=== PATIENT | male | born 1980 | race Caucasian/White ===

== ENCOUNTER 2021-12-26 19:48 | Observation (INO) | payer BC, MEDICARE, MEDICAID, OTHER, SELFPAY ==
--- NOTE | ~2021-12-26 | CT_ITS ---
EXAMINATION: CT abdomen pelvis w con DATE: 12/26/2021 22:13 INDICATION: Vomiting Coffee Ground material TECHNIQUE: Computed tomography (CT) of the abdomen and pelvis was performed with 100 mL Omnipaque-350 intravenous contrast. Automated exposure control and iterative reconstruction technique were employe d. The dose-length product was 206.70 mGy-cm. COMPARISON: 09/25/2018 FINDINGS: Limitations: Motion artifact, beam hardening from spinal hardware, and positioning. Lower thorax: Subsegmental bibasilar opacities, may reflect atelectasis, chronic change, or foci of a spiration. Hiatal hernia. Pulmonary artery stent. Liver: Normal. Biliary/Gallbladder: Gallbladder is normal. No bile duct dilation. Spleen: Normal. Pancreas: No mass or duct dilation. Adrenals:No mass. Kidneys: No hydronephrosis. Right renal calculi. Left renal cyst. Bilateral hypodensities that are to o small to characterize. GI tract: No small or large bowel dilation. Appendix not visualized. Fluid-filled colon. Mesentery/Peritoneum: No ascites, mass, or free air. Retroperitoneum: No mass. Pelvis: Stable soft tissue density in the left inguinal canal, likely undescended testicle. Otherwise the pelvic organs are within normal limits. Bones/Soft Tissues: Soft tissues and body wall unremarkable. Severe thoracal lumbar scoliosis. Extens jina thoracolumbar fusion. Additional Findings: None. IMPRESSION: Limited examination. Fluid-filled colon as can be seen with diarrheal illness. No other acute abdomin opelvic process detected. Reviewed, dictated and finalized at location K. IMPRESSION: Limited examination. Fluid-filled colon as can be seen with diarrheal illness. No other acute abdominopelvic process detected.
[2021-12-26 19:55] VITALS: BP 111/73; PULSE 64; RESP 18; TEMP 36.8; O2SAT 90
--- NOTE | 2021-12-26 20:47 | ED.NAVMDI ---
HPI - Nausea/Vomiting/Diarrhea General Chief complaint: Nausea/Vomiting/Diarrhea Stated complaint: vomiting Time Seen by Provider: 12/26/21 20:36 Source: family Mode of arrival: wheelchair Limitations: clinical condition History of Present Illness HPI Narrative: 41-year-old male with cerebral palsy brought in by the father. He is in the process of undergoing a prep for a colonoscopy. He initially had magnesium citrate yesterday and then started with MiraLAX. Been having vomiting ever since. Father actually brought in a container of the vomitus which is very dark in appearance and liquid and has coffee-ground type material in it. No history of any GI bleeding before. They attempted to do a GI prep for him to get a colonoscopy a month ago could not tolerate that and began vomiting subsequently was rescheduled for tomorrow. No blood in his vomitus or stool. He is getting work-up done because he has had this abdominal pain with no etiology and able to determine at this point. Patient has a prosthetic heart valve but is not on any blood thinners. Related Data Home Medications Medication Instructions Recorded Confirmed polyethylene glycol 3350 17 17 gm PO DAILY 06/07/20 12/14/21 gram/dose oral powder aspirin 81 mg tablet,delayed 50 mg PO DAILY tablet 02/26/21 12/14/21 release Allergies Allergy/AdvReac Type Severity Reaction Status Date / Time latex Allergy Unknown Unknown Verified 12/14/21 12:44 Review of Systems Review of Systems: CONSTITUTIONAL: Denies fever, chills, or sweats. EYES: Denies redness, or discharge. ENT: Denies rhinorrhea, congestion, sore throat, or otalgia. CARDIOVASCULAR: Denies chest pain, palpitations, or edema. Has a prosthetic valve RESPIRATORY: Denies cough or dyspnea. GASTROINTESTINAL: Some chronic abdominal pain now is coming in with vomiting of coffee-ground material. No diarrhea GENITOURINARY: Denies dysuria or hematuria. SKIN: Denies rash or itching. MUSCULOSKELETAL: Denies back pain, joint pain, or myalgia. NEUROLOGIC: Denies recent changes PSYCHIATRIC: Denies anxiety or depression. [facility] Past Medical History Medical History Abdominal pain Allergies Body mass index (BMI) less than 16.5 Cerebral palsy Encounter for prostate cancer screening Heart disease Hemorrhoid Iron deficiency anemia, unspecified Irritable bowel syndrome with constipation Lower abdominal pain Migraine without aura and without status migrainosus, not intractable Polycythemia (05/28/21) hematocrit slightly elevated at 52 on 05/28/2021 Pulmonary atresia, VSD (including ToF, VSD) Scoliosis Surgical History Surgical History H/O Spinal surgery (~1997) Pulmonary valve replaced Family History Family History Grandparent Family history of thyroid disease Mother Family history of thyroid disease Diabetes mellitus Hypertension Father Diabetes mellitus Social History Social History Smoking status: Never smoker Alcohol intake: never Substance use: never Substance use type: does not use Spiritual care concerns: No Exam Narrative: APPEARANCE: Well appearing, no pain or distress, well-nourished. Head normocephalic and atraumatic. EYES: PERRLA/EOMI, conjunctivae very clear. NOSE: Normal with no drainage EARS:TMS clear [place], with good light reflex. THROAT: Pharynx clear, no exudate. NECK: Supple. No adenopathy, no masses. RESPIRATORY: Airway patent, respirations nonlabored. Clear to auscultation bilaterally, no rales, rhonchi, wheezing. CARDIOVASCULAR: Regular rate and rhythm without murmurs, rubs, or gallops. Tachycardic. Click noted from the valve. ABDOMINAL: Soft, nontender no hepatosplenomegaly. Abdomen appears to be distended with some hyperactive b
[2021-12-26 21:30] VITALS: BP 112/82; PULSE 116; RESP 20; O2SAT 96
[2021-12-26 21:30] LABS: Basophils Percent Auto 0.2 % (0.2-1.2); Hemoglobin 16.4 g/dL (14.0-18.0); Immature Granulocyte Absolute 0.04 K/mm3 (0.00-0.031); Immature Granulocyte Percent A 0.3 % (0-0.5); Immature Platelet Fraction Pct 18.4 % (0.9-11.2); Lymphocytes Absolute Auto 0.73 K/mm3 (0.9-3.2); Lymphocytes Percent Auto 5.8 % (18.3-44.2); Mean Corpuscular HGB Conc 32.8 g/dl (32-36); Mean Corpuscular Hemoglobin 30.3 pg (26-34); Mean Corpuscular Volume 92.3 fl (80-100); Mean Platelet Volume 13.2 fl (7.4-10.4); Monocytes Absolute Auto 0.6 K/mm3 (0.1-0.6); Monocytes Percent Auto 4.5 % (2.6-8.5); Neutrophils Absolute Auto 11.3 K/mm3 (1.3-6.7); Neutrophils Percent Auto 89.2 % (45.5-73.1); Platelet Count Result 210 k/mm3 (150-375); Red Blood Count 5.42 M/mm3 (4.6-6.20); White Blood Count 12.6 K/mm3 (4.5-10.0)
[2021-12-26 21:39] LABS: INR 1.1; Prothrombin Time 14.2 Seconds (11.1-14.7)
[2021-12-26 21:40] LABS: Partial Thromboplastin Time 30.6 SECONDS (22.3-36.8)
[2021-12-26 21:43] LABS: Alanine Aminotransferase 17 U/L (4-50); Alkaline Phosphatase 69 U/L (38-126); Anion Gap 10 mmol/L (8-16); Aspartate Amino Transferase 38 U/L (17-59); Bilirubin,Total 1.1 mg/dL (0.2-1.3); Blood Urea Nitrogen 20 mg/dL (9-20); Calcium 8.7 mg/dL (8.4-10.2); Carbon Dioxide 29 mmol/L (22-30); Chloride 99 mmol/L (98-107); Estimated CRCL calculation 91 ml/min; Estimated Glomerular Filt Rate > 60; Glucose 152 mg/dL (65-110); Lipase 47 U/L (23-300); Potassium 4.5 mmol/L (3.4-5.0); Sodium 138 mmol/L (137-145)
[2021-12-26 22:30] VITALS: BP 117/76; PULSE 110; RESP 20; O2SAT 95
[2021-12-26] MEDS: ONDANSETRON INJ 4 MG/2 ML VIAL IV PUSH (22:54)
--- NOTE | 2021-12-26 23:29 | PM.IMHP ---
H&P: HPI History of Present Illness Date/Time: 12/26/21 23:29 Chief Complaint: Nausea and vomiting Narrative: This is a 41-year-old male with past medical history significant for cerebral palsy, congenital heart malformation, heart disease, patient with repaired tetralogy of Fallot. Patient is brought into the emergency room by his father for evaluation after having several episodes of nausea and vomiting was doing preparation for colonoscopy with MAC citrate. It was noted that patient was having coffee-ground emesis which was Guiac positive. Most of the history has been obtained from the father as patient is unable to give any. Decision has been made to admit the patient for the evaluation, management and treatment. Review of Systems Review of Systems: ROS unobtainable: Yes unobtainable due to medical condition (Cerebral palsy) [facility] Past Medical History Medical History Abdominal pain Allergies Body mass index (BMI) less than 16.5 Cerebral palsy Encounter for prostate cancer screening Heart disease Hemorrhoid Iron deficiency anemia, unspecified Irritable bowel syndrome with constipation Lower abdominal pain Migraine without aura and without status migrainosus, not intractable Polycythemia (05/28/21) hematocrit slightly elevated at 52 on 05/28/2021 Pulmonary atresia, VSD (including ToF, VSD) Scoliosis Surgical History Surgical History H/O Spinal surgery (~1997) Pulmonary valve replaced Family History Family History (Updated 12/27/21 @ 01:19 by Ary Mercado RN) Grandparent No problems noted. Mother Diabetes mellitus Family history of thyroid disease Hypertension Father Diabetes mellitus Social History Social History Smoking status: Never smoker Alcohol intake: never Substance use: never Substance use type: does not use Living arrangements: with family Spiritual care concerns: No Meds Home Medications and Allergies Home Medications Medication Instructions Recorded Confirmed Type metoprolol succinate 50 mg 25 mg PO DAILY #30 tablet 06/07/20 12/27/21 Rx tablet,extended release 24 hr polyethylene glycol 3350 17 17 gm PO DAILY 06/07/20 12/27/21 History gram/dose oral powder sumatriptan 20 mg/actuation nasal 20 mg NASAL ONCE PRN #6 each 06/07/20 12/27/21 Rx spray aspirin 81 mg tablet,delayed 50 mg PO DAILY tablet 02/26/21 12/27/21 History release hydrocortisone 2.5 % topical cream 1 applic RECTAL BID PRN #30 g 06/26/21 12/27/21 Rx with perineal applicator Allergies Allergy/AdvReac Type Severity Reaction Status Date / Time latex Allergy Unknown Unknown Verified 12/14/21 12:44 Vital Signs Vital Signs - 24 hr 12/26/21 19:55 Temperature 98.2 F Pulse Rate 64 Respiratory Rate 18 Blood Pressure 111/73 Pulse Oximetry 90 Exam Narrative: Laying in a stretcher Const: General: comfortable, no acute distress, alert and awake Nutritional Appearance: underweight Orientation/consciousness: Other orientation findings (Cognitively impaired) HENMT: Head: normal to inspection, normocephalic and atraumatic Ears: hearing grossly normal bilaterally Face and sinus: normal facial exam Mouth: Yes Normal oral and palatal mucosa present Eyes: General: appearance normal, both eyes and all related structures Alignment and Position: alignment normal Sclera: sclerae normal Pupils: Equal, round and reactive pupils present EOM: EOMs intact bilaterally Neck: Neck: full ROM, no lymphadenopathy and no JVD Thyroid: thyroid normal Lymphatic: no lymphadenopathy noted Chest: Chest palpation & inspection: other (Mid sternotomy surgical scar) Resp: Effort & Inspection: normal respiratory effort, able to speak in complete sentences and no cough Auscultation: clear to auscultation bilaterall
[2021-12-26 23:30] VITALS: BP 115/79; PULSE 110; RESP 16; O2SAT 95
[2021-12-27] VITALS (8 sets, daily range): BP systolic 72–149; BP diastolic 42–80; PULSE 65–115; RESP 15–18; TEMP 36.2–37.3; O2SAT 92–100; BMI 13.7
[2021-12-27] MEDS: PANTOPRAZOLE SODIUM IV 40 MG VIAL IV PUSH (00:38)
--- NOTE | 2021-12-27 01:20 | ADMGEN ---
This patient, Nash Page, was admitted to Medical Room 343-01. Patient/family oriented to hospital policies and general routines including ID bracelet, bed and alarms, visiting hours, pain management, procedures, bathroom and other care routines, personal items, smoking policy, room service/diet, and visiting hours. Information on how to activate the Rapid Response Team has been discussed. Patient/Family are encouraged to report perceived risks to care and to ask questions if they do not understand what they are told or what they should do.
[2021-12-27] MEDS: LACTATED RINGERS 1,000 ML 150 ML IV CONT (08:14)
[2021-12-27] MEDS: GENTAMICIN 80MG/SOD CHL 50 ML 80 MG/50 ML BAG 100 MG IVPB (08:15)
--- NOTE | 2021-12-27 08:19 | WPDANESEPPF ---
Anes - Initial Pre Proc Eval Procedure: Operation Date: 12/27/21 13:15 Proposed Procedures p Esophagogastroduodenoscopy & Colonoscopy - Gabriele Lorenzo MD Date/Time: 12/27/21 08:19 Surgeon: Kalyani De Leon PA-C Pre Op Diagnosis: Upper GI Bleed, Chronic Abd Pain, Cerebal Palsy Patient Data Age: 41 Gender: M Height: 1.7 m Weight: 39.8 kg Last Vital Signs Temp 37.3 C 12/27/21 08:17 Pulse 115 H 12/27/21 08:17 Resp 16 12/27/21 08:17 BP 143/67 H 12/27/21 08:17 Pulse Ox 95 12/27/21 08:17 Allergies Allergy/AdvReac Type Severity Reaction Status Date / Time latex Allergy Unknown Unknown Verified 12/27/21 08:16 Home Medications Medication Instructions Recorded Confirmed Type metoprolol succinate 50 mg 25 mg PO DAILY #30 tablet 06/07/20 12/27/21 Rx tablet,extended release 24 hr polyethylene glycol 3350 17 17 gm PO DAILY 06/07/20 12/27/21 History gram/dose oral powder sumatriptan 20 mg/actuation nasal 20 mg NASAL ONCE PRN #6 each 06/07/20 12/27/21 Rx spray aspirin 81 mg tablet,delayed 50 mg PO DAILY tablet 02/26/21 12/27/21 History release hydrocortisone 2.5 % topical cream 1 applic RECTAL BID PRN #30 g 06/26/21 12/27/21 Rx with perineal applicator Laboratory Tests 12/26/21 12/26/21 12/26/21 21:21 21:21 21:21 WBC 12.6 K/mm3 H K/mm3 (4.5-10.0) RBC 5.42 M/mm3 M/mm3 (4.6-6.20) Hgb 16.4 g/dL g/dL (14.0-18.0) Hct 50.0 % % (42.0-52.0) MCV 92.3 fl fl (80-100) MCH 30.3 pg pg (26-34) MCHC 32.8 g/dl g/dl (32-36) RDW 13.0 % % (11.5-14.5) Plt Count 210 k/mm3 k/mm3 (150-375) MPV 13.2 fl H fl (7.4-10.4) Immature Gran % (Auto) 0.3 % % (0-0.5) Neut % (Auto) 89.2 % H % (45.5-73.1) Lymph % (Auto) 5.8 % L % (18.3-44.2) [place] % (Auto) 4.5 % % (2.6-8.5) Eos % (Auto) 0.0 % % (0-4.4) Baso % (Auto) 0.2 % % (0.2-1.2) Lymph # (Auto) 0.73 K/mm3 L K/mm3 (0.9-3.2) [place] # (Auto) 0.6 K/mm3 K/mm3 (0.1-0.6) Eos # (Auto) 0.0 K/mm3 K/mm3 (0-0.3) Baso # (Auto) 0.0 K/mm3 K/mm3 (0.0-0.1) Abs Immat Gran (auto) 0.04 K/mm3 H K/mm3 (0.00-0.031) Absolute Neuts (auto) 11.3 K/mm3 H K/mm3 (1.3-6.7) Absolute Nucleated RBC 0.0 K/mm3 K/mm3 (0.0-0.012) Nucleated RBC % 0.0 % % (0.0-0.2) % Immature Plt Fraction 18.4 % H % (0.9-11.2) PT 14.2 Seconds Seconds (11.1-14.7) INR 1.1 APTT 30.6 SECONDS SECONDS (22.3-36.8) Sodium 138 mmol/L mmol/L (137-145) Potassium 4.5 mmol/L mmol/L (3.4-5.0) Chloride 99 mmol/L mmol/L (98-107) Carbon Dioxide 29 mmol/L mmol/L (22-30) Anion Gap 10 mmol/L mmol/L (8-16) BUN 20 mg/dL mg/dL (9-20) Creatinine 0.60 mg/dL L mg/dL (0.7-1.3) Estim Creat Clear Calc 91 ml/min ml/min Estimated GFR > 60 (59 - ) Glucose 152 mg/dL H mg/dL (65-110) Calcium 8.7 mg/dL mg/dL (8.4-10.2) Total Bilirubin 1.1 mg/dL mg/dL (0.2-1.3) AST 38 U/L U/L (17-59) ALT 17 U/L U/L (4-50) Alkaline Phosphatase 69 U/L U/L (38-126) Total Protein 9.0 g/dL H g/dL (6.3-8.2) Albumin 5.0 g/dL g/dL (3.5-5.1) Lipase 47 U/L U/L (23-300) Patient hx anesthesia problems: none Family hx anesthesia problems: none Results Review: All pre-operative results and documents have been reviewed as part of the pre-operative evaluation. [facility] Past Medical History Medical History Abdominal pain Allergies Body mass index (BMI) less than 16.5 Cerebral palsy Encounter for prostate cancer screening Heart disease Hemorrhoid Iron deficiency anemia, unspecified Ir
[2021-12-27] MEDS: AMPICILLIN 2 GM/NS 100 ML 2 GM/100 ML BAG IVPB (08:45)
--- NOTE | 2021-12-27 09:25 | SUR.OPER ---
EGD ENDED AT 916, COLONOSCOPY BEGAN AT 922.
[2021-12-27 13:11] LABS: Hematocrit 45.6 % (42.0-52.0); Hemoglobin 14.9 g/dL (14.0-18.0); White Blood Count 8.4 K/mm3 (4.5-10.0)
--- NOTE | 2021-12-27 13:46 | PM.DS ---
DS: Admitting Diagnosis Discharge Date 12/27/2021 Admitting Diagnosis Coffee-ground emesis DS: Discharge Diagnosis Discharge Diagnosis (1) Coffee ground emesis: Code(s): K92.0 - Hematemesis Status: Acute Assessment and Plan: Patient presented with coffee-ground emesis while taking prep for colonoscopy. EGD revealed hiatal hernia. Anti-reflux measures initiated. Continue Protonix 40 mg daily. [place] diet recommended. (2) Iron deficiency anemia, unspecified: Code(s): D50.9 - Iron deficiency anemia, unspecified Status: Acute Assessment and Plan: History of iron deficiency anemia per medical history in EMR. He had a low hemoglobin in May 2020 but subsequently has not been anemic. Hemoglobin and hematocrit remained within normal limits even in light of coffee-ground emesis. (3) Abdominal pain: Code(s): R10.9 - Unspecified abdominal pain Status: Acute Assessment and Plan: This had been a persistent issue for which she is established with Gastroenterology and had scheduled colonoscopy. Colonoscopy showed multiple internal hemorrhoids that were not actively bleeding. Suspect his abdominal pain is related to poor motility. Bowel regimen was initiated. (4) Cerebral palsy: Code(s): G80.9 - Cerebral palsy, unspecified Status: Acute Assessment and Plan: No acute issues. (5) Body mass index (BMI) less than 16.5: Code(s): Z68.1 - Body mass index [BMI] 19.9 or less, adult Status: Acute Assessment and Plan: Follow up with PCP DS: Summary Hospital Course Hospital Course: Date of admission: 12/26/2021 Date of discharge: 12/27/2021 Nash Page is a 41-year-old male with a history of cerebral palsy who is wheelchair-bound, congenital heart disease including to Tetralogy of Fallot, iron deficiency anemia, migraine, and recent issues with abdominal discomfort and rectal pain ongoing for 6-12 months. Patient was scheduled to undergo colonoscopy on 12/27/[address] Lorenzo. He was completing his prep when he began having persistent nausea and vomiting and was noted to have an episode of coffee-ground emesis for which he was taken to the emergency department for further evaluation. On presentation, emesis was found to be Hemoccult positive, hemoglobin stable at 16.4, and CT abdomen/pelvis showed fluid-filled colon with no acute abdominal pelvic process. He was admitted to the hospitalist service for further evaluation management was seen in consultation by Gastroenterology. He underwent EGD and colonoscopy on 12/27/2021. Please see above for further information. The patient was feeling much improved and was eager for discharge home. He will follow-up with his PCP for further monitoring. He was initiated on a bowel regimen to help prevent constipation. Anti-reflux measures discussed in light of his hiatal hernia. The patient's mom and dad were present at the time of my evaluation I discussed with them worrisome signs and symptoms for which to return and educated on his medications. The patient was discharged in hemodynamically stable condition on 12/27/2021. Time Spent with Patient Time attestation: Total time spent providing and/or coordinating discharge services: 45 minutes Time spent: Greater than 30 minutes Exam Narrative: General: Thin, well-appearing 41 year-old male, sitting up in bed, comfortable, NARD Neuro: awake, alert, responds to some questions with yes, no, or good, speech is muffled but understandable, no focal neuro deficits noted HEENMT: normocephalic, atraumatic, EOMI, sclerae anicteric Respiratory: clear to auscultation bilaterally, nonlabored breathing Cardio: regular rate, regular rhythm with S1-S2 Abdomen: nondistended, normoactive bowel sounds, soft, nontender to palpation, no rigidity or guarding MSK: Atrophy of upper and lower extremities with bilateral upper extremity contractures Skin:
--- NOTE | 2021-12-27 14:10 | PCCCNOTE ---
On 12/27/21, the student, [Ines King], provided care and completed [facility] documentation on this patient. I have reviewed the student's documentation and agree with the findings.
== END 2021-12-27 14:40 | disposition home or self-care (01) ==
LOC: ANHED 21:37 → ANH3MED 12-27 00:10
PROVIDERS: Internal Medicine Gastroenterology; Physician Assistant; Admitting Provider Internal Medicine; Emergency Provider Emergency Medicine; PCP Family Medicine; Visit Provider Family Medicine
PROC: 0DJ08ZZ Inspection of Upper Intestinal Tract, Via Natural or Artificial Opening Endoscopic (ICD-10-PCS; CPT 43235; principal; 2021-12-27 13:15)
DX: K92.0 Hematemesis (principal); D50.9 Iron deficiency anemia, unspecified; K44.9 Diaphragmatic hernia without obstruction or gangrene; K58.1 Irritable bowel syndrome with constipation; K64.8 Other hemorrhoids; D75.1 Secondary polycythemia; G80.9 Cerebral palsy, unspecified; G43.909 Migraine, unspecified, not intractable, without status migrainosus; Q21.3 Tetralogy of Fallot; Z95.2 Presence of prosthetic heart valve
CPT/HCPCS: 43239; 45378; 36415; 74177; 80053; 83690; 85014; 85018; 85025; 85048; 85055; 85610; 85730; 86850; 86900; 86901; 87081; 96361; 96374; 96375; 99285; A9270; C9113; G0378; J0290; J1580; J2001; J2405; J2704; J7120; Q9967

== ENCOUNTER 2023-11-11 15:16 | Outpatient (CLI) | payer BC, MEDICARE, OTHER, MEDICAID, SELFPAY ==
--- NOTE | ~2023-11-11 | XR_ITS ---
EXAM: XR hip LT 2V w AP pelvis DATE: 11/11/2023 15:35 HISTORY: M25.552 - Pain in left hip . COMPARISON: CT abdomen pelvis 12/26/2021. FINDINGS: Decreased mineralization. Multiple air-filled loops of nondilated bowel over the lower abd omen. Pelvic phleboliths. Thoracolumbar fusion hardware. Bilateral coxa valga. No fracture or disloca tion. Mild left superior hip joint space narrowing and subchondral sclerosis. IMPRESSION: Osteopenia. Bilateral coxa valga. Mild left hip osteoarthritis. Reviewed, dictated and finalized at location K. ELET FORM COVERER
== END 2023-11-11 15:17 | disposition home or self-care (01) ==
LOC: ANHIMG 15:21
PROVIDERS: PCP Family Medicine; Visit Provider Family Medicine
DX: M85.852 Other specified disorders of bone density and structure, left thigh (principal); M16.12 Unilateral primary osteoarthritis, left hip
CPT/HCPCS: 73502

== ENCOUNTER 2025-03-01 13:44 | Outpatient (CLI) | payer BC, MEDICARE, OTHER, MEDICAID, SELFPAY ==
--- NOTE | ~2025-03-01 | US_ITS ---
Ultrasound of the left buttock CLINICAL HISTORY: Mass TECHNIQUE: Targeted sonographic imaging of the concern was performed. FINDINGS: Anterior clinical concern, there is a 1.8 x 0.8 x 1.6 cm hyperechoic, homogeneous, parallel mass, most compatible with lipoma. No other sonographic abnormality seen. IMPRESSION: 1.8 x 0.8 x 1.6 cm mass at the left buttock is most compatible with lipoma. Reviewed, dictated and finalized at location .
--- OUTSIDE RECORDS SUMMARY | 2025-03-01 14:30 | XMS_ITS | Continuity of Care Document ---
Author Name [facility] Organization [facility] Care Team Providers Care Pattern Changer And Repairer Name Role Phone [facility] Unavailable Unavailable Medications Combined list of outpatient medications from Department of Defense and Veterans Affairs facilities.Medications provided include 1) outpatient medications from the last 15 months, and 2) patient-reported medications. Medication Details Route Status Patient Instructions Prescription Expires Prescription Number Last Dispense Date Ordering Provider Order Date Order Qty Source metoprolol succ (U/D) 25 MG ORAL TB24 Be careful if taking OTCs.Zach e with food/mil k.Take or use exactly as directed .May impair driving. Swallow whole.Ma y cause drowsine ss/dizzi ness. Active 03/09/2025 [id number] 4 2023 45 [facility] [employer] [facility]i [facility] ([facility] [place] metoprolol succinate ER 25 mg/24 hour tablet See Instruct ions, # 45 EA, 3 total refill(s ), Hard Stop Complet ed 03/02/2024 4 2023 45.0 Ambulat ory Pharmac y metoprolol succinate ER 25 mg/24 hour tablet See Instruct ions, Oral, 0, # 45 EA, 3 total refill(s ), Hard Stop Oral (given by mouth) Ordered 03/09/2025 5 2024 45.0 Ambulat ory Pharmac y Allergies, Adverse Reactions, Alerts Combined list of allergies from Department of Defense and Veterans Affairs facilities. It does not include entries that were removed or entered in error. Substance Category Reaction Severity Reaction type Status Date Reported Comments Source No Known Allergies Drug allergy (disorder) active 11/29/2007 [place] [address] Immunizations Combined list of available immunizations from the Department of Defense and Veterans Affairs facilities. Immunization Series Date Given Administered By Site Reaction Lot Number CVX Code Drug Contact Center Associate Status Comments Source influenza virus vaccine, whole virus 2002 Harshal alexander Arm [id number] [employer] complet ed influenza virus vaccine, whole virus 08/02/03 Given Ambulat ory Pharmac y influenza virus vaccine, whole virus 2002 [id number] [employer] complet ed influenza virus vaccine, whole virus 08/02/03 Given Ambulat ory Pharmac y influenza virus vaccine, whole virus 1 2002 Unknown, Provider [id number] [employer] (PW[employer]) complet ed influenza virus vaccine, whole virus DoD influenza virus vaccine, whole virus 2000 zzLef t Arm [id number] 16 sanofi pasteur complet ed influenza virus vaccine, whole virus 07/24/01 Given Ambulat ory Pharmac y influenza virus vaccine, whole virus 2000 [id number] 16 sanofi pasteur complet ed influenza virus vaccine, whole virus 07/24/01 Given Ambulat ory Pharmac y influenza virus vaccine, whole virus 1 2000 Unknown, Provider [id number] 16 Sanofi Pasteur ([facility]) complet ed influenza virus vaccine, whole virus DoD [id number] YesPlz! complet ed influenza virus vaccine, whole virus 09/26/00 Given Ambulat ory Pharmac y influenza virus vaccine, whole virus 1 2000 Unknown, Provider [id number] 16 [facility] influenza virus vaccine, whole virus DoD Procedures Combined list of: 1) Procedures from Department of Veterans Affairs facilities going back up to thelast 18 months, not all [place] non-surgical procedures are included; 2) All procedures from the Department of Defense facilities. Procedure Procedure Type Code Date Perfomer Comments Sourc e No data available for this section Ambulatory P harmacy Social History Combined list of available smoking, tobacco, and other social history from Department of Defense and Veterans Affairs facilities. Social History Type Response Date Comment Sourc e This section is an empty social history section. DoD Assessment and Plan Combined list of future care activities from Department of Defense and Veterans Affairs facilities (e.g., assessment and plan notes, appointments, orders, and referrals). Additional future care activities may be listed in the Plan of Care section. Result Assessment and Plan Date Source Assessment and Plan No data available for this section 03/01/2025 Ambulatory Pharmacy Functional Status Combined list of recent functional and cognitive assessments recorded at [facility] Defense and [facility] ([place] Functional [place] Measurement (FIM) Scale: 1 = Total Assistance (Subject = 0% +), 2 = Maximal Assistance (Subject = 25% +), 3 = Moderate Assistance (Subject = 50% +), 4 = Minimal Assistance (Subject = 75% +), 5 = Supervision, 6 = Modified Henry (Device), 7 = Complete Henry (Timely, Safely). Assessment Date/Time Source Assessment Type Assessment Skill Assessment Score Assessment Details No data available for this section
== END 2025-03-01 13:45 | disposition home or self-care (01) ==
PROVIDERS: PCP Family Medicine; Visit Provider Nurse Practitioner Family
DX: R22.9 Localized swelling, mass and lump, unspecified (principal)
CPT/HCPCS: 76705

== ENCOUNTER 2025-03-11 00:25 | Day surgery (SDC) | payer BC, MEDICARE, OTHER, MEDICAID, SELFPAY ==
[2025-03-09 14:42] VITALS: BMI 15.2
--- NOTE | 2025-03-09 14:44 | PC.NURSE ---
Report to the Outpatient Waiting Room, entrance under the green pavilion located off [facility], at time _1200_ on date _[id number]_. Planned Procedure Time: _2pm_.? Time changes happen often and if your time is changed the preop area will call you the afternoon before. - You and your visitor will be asked to self-screen and do not enter if you have any COVID symptoms. Please call surgeon if you need to reschedule. - A mask is optional within the hospital at this time. Patients may have clear liquids (water, carbonated beverages, clear teas, apple juice) until 3 hours prior to surgery with a maximum of 20 ounces. - No food from midnight until time of surgery and no smoking, or chewing tobacco (or any form of nicotine). No chewing gum, candy or mints. Take only the following medications with a SIP of water on the morning of surgery: ___None___ DO NOT STOP ANY OF YOUR OTHER PRESCRIPTION MEDICATIONS PRIOR TO SURGERY EXCEPT THE FOLLOWING Hold all vitamins and supplements for 3 days per anesthesiologist. Medications to discontinue per physician Date to take last dose____ Please no make-up, nail marshallese, hairspray, perfume, deodorant, or body powder the day of surgery.? No jewelry (including any body piercings) or valuables the day of surgery, leave them at home.? Please take a shower or bath the night before, or the morning of, surgery with an antibacterial soap.? Wear comfortable, loose fitting clothing.? - Jewelry must be removed prior to entering the operating room.? Rings and piercings that are not removed may be cut off. - The hospital will not accept responsibility for valuables.? - Please leave all valuables, including medications, at home the day of surgery. If you are going home after surgery, a licensed cattle driver must drive you home.? - NO public transportation without another adult if you receive anesthesia. - We recommend that an adult stay with you for 24 hours following discharge. - We also recommend that you do not drive, make important decision, drink alcoholic beverages, or take any drugs that were not prescribed by your health care provider for at least 24 hours after your discharge time. Follow any additional instructions given to you from your surgeon. Telephone instructions given to __Lenny/belia__and asked if any additional questions and then verbalized understanding. Patient advised to call surgeon office or pre surgery nurse liaison [phone] if any additional questions.
[2025-03-11 12:45] VITALS: BMI 15.1
--- NOTE | 2025-03-11 12:47 | ECG_ITS ---
Test Date: 2025-03-11 13:25:32 Measurements Intervals Jakin Rate: 94 P: 34 PA: 191 QRS: 31 QRSD: 144 T: 53 QT: 380 QTc: 476 Interpretive Statements SINUS RHYTHM RIGHT BUNDLE BRANCH BLOCK BASELINE ARTIFACT- I, II, III, AVR, AVL, AVF, V1-V6 ABNORMAL ECG No previous ECG available for comparison Electronically Signed On 03-11-2025 14:15:52 CDT by Giovanny Romero D.O.
[2025-03-11] MEDS: LACTATED RINGERS 1,000 ML 30 ML IV CONT (13:05)
--- NOTE | 2025-03-11 13:11 | WPDHPUPDATE1 ---
History and Physical Update Update Date/Time: 03/11/25 13:11 History and Physical has been reviewed, including an updated exam of the patient. There are NO changes in the patient's condition. Risks, benefits, and alternatives have been discussed and questions answered. Patient agrees to proceed with procedure.
--- NOTE | 2025-03-11 14:09 | P.PNAN_ITS ---
Anes - Initial Pre Proc Eval Procedure: Operation Date: 03/11/25 14:00 Proposed Procedures p Excision Left Buttock Subcutaneous Mass - Tomi Price MD Date/Time: 03/11/25 14:09 Surgeon: Tomi Price MD Pre Op Diagnosis: left buttock sub q mass Patient Data Age: 44 Gender: M Height: 1.73 m Weight: 45.5 kg Allergies Allergy/AdvReac Type Severity Reaction Status Date / Time latex Allergy Unknown Unknown Verified 03/11/25 14:04 Home Medications ?Medication ?Instructions ?Recorded ?Confirmed ?Type metoprolol succinate 50 mg 25 mg (1/2 x 50 mg) PO DAILY #30 06/07/20 03/09/25 Rx tablet,extended release 24 hr tabs polyethylene glycol 3350 17 17 gm PO DAILY 06/07/20 03/09/25 History gram/dose oral powder (Miralax) aspirin 81 mg tablet,delayed 81 mg PO DAILY 02/26/21 03/09/25 History release (Adult Low Dose Aspirin) hydrocortisone 2.5 % topical cream 1 applic RECTAL BID PRN 06/26/21 03/09/25 Rx with perineal applicator hemorrhoids #30 grams (Anusol-HC) docusate sodium 100 mg capsule 100 mg PO BID #60 caps 12/27/21 03/09/25 Rx (Colace) sumatriptan 20 mg/actuation nasal 20 mg intranasal ONCE PRN migraine 01/09/24 03/09/25 Rx spray headache #6 ea multivitamin (Daily Multi-Vitamin 1 tablet PO DAILY 03/09/25 03/11/25 History tablet) Patient hx anesthesia problems: none Family hx anesthesia problems: none Results Review: All pre-operative results and documents have been reviewed as part of the pre- operative evaluation. [facility] Past Medical History Medical History Localized swelling, mass and lump, unspecified Lipoma on ultrasound Body mass index (BMI) less than 16.5 Lipoma of buttock 1.8 x 0.8 x 1.6 lipoma left buttocks on ultrasound 03/01/2025. Anemia Hip pain, left (~10/2023) x-ray of the left hip on 11/11/2023 reveals mild osteoarthritis. Hiatal hernia GERD (gastroesophageal reflux disease) Neoplasm of skin (~2021) lesion right proximal anterior thigh growing with patient concerned. Pathology reveals benign irritated seborrheic keratosis from 11/18/2022. Chronic pain in testicle Elevated fasting glucose Serum potassium elevated Otitis media, left COVID-19 (03/09/22) Polycythemia (05/28/21) hematocrit slightly elevated at 52 on 05/28/2021 Hemorrhoid Lower abdominal pain Iron deficiency anemia, unspecified Abdominal pain Encounter for prostate cancer screening PSA normal at 0.47 on 06/10/2022. Irritable bowel syndrome with constipation Migraine without aura and without status migrainosus, not intractable Pulmonary atresia, VSD (including ToF, VSD) Cerebral palsy Scoliosis Heart disease Allergies Surgical History Surgical History H/O Spinal surgery (~1997) Pulmonary valve replaced Family History Family History Grandparent No problems noted. Mother Diabetes mellitus Family history of thyroid disease Hypertension Father Diabetes mellitus Social History Social History Smoking status: Never smoker Alcohol intake: never Substance use: never Substance use type: does not use Do You Feel Safe in your Home?: Yes Lack of Transportation: No Lack of Food: Never True Current Housing: I Have Housing Concerned About Future Housing: No Difficulty Paying Gas/Electric Bills: No Difficulty Paying for Meds: No Currently Unemployed: No Education: High School Diploma/GED Difficulty w/ Childcare or Family Care: No Living arrangements: with family Spiritual care concerns: No Anes - Eval Final PreProcedure Day of Procedure 03/11/25 14:09 Patient weight: thin Heart: regular rate and rhythm Lungs: decreased breath sounds Airway: Mallampati scale class III Neurological: other (alert) Last oral intake: >/= 8 hours ASA classification: IV Emergent: no Anesthetic plan: proceed Anesthesia type and monitoring: general LMA and standard monitoring Results Review: All pre-operative results and documents have been reviewed as part of the pre- operative evaluation. Informed Consent: The patient's anesthetic plan and its attendant risks and benefits were discussed with the patient/family/POA. Questions were solicited and answers provided to the satisfaction of the patient/family/POA.
[2025-03-11 14:11] VITALS: BP 151/81; PULSE 101; TEMP 37.1; O2SAT 97
[2025-03-11] MEDS: ceFAZolin 2 GM/D5W 50 ML 2 GM/50 ML BAG IVPB (15:00)
--- NOTE | 2025-03-11 15:29 | S_PTH ---
PATIENT: Nash Page LOC: [facility] U#:[id number] AGE/SX: 44/M ROOM: RE03/11/[address]: Tomi Price MD : 1980 BED: DIS: 03/11/2025 SPEC #: [id number] RECD: 03/14/25 07:33 STATUS: GELA REArnaud #: [id number] ANDREW: 03/11/25 15:[address]: Tomi Price DEPT: [facility] Surgical RECD BY: Vandana Bae ENTERED: 03/14/25 07:33 SP TYPE: Surgical OTHR DR: Severo Montana MD Tissues: A - Mass Procedures: Hematoxylin and Eosin Stain Gross and Microscopic Level 3
--- NOTE | 2025-03-11 15:48 | W.PM.PROC2 ---
Procedure Note - Detailed Date of Procedure 03/11/25 Pre-op Diagnosis left buttock sub q mass Post-op Diagnosis Other (Left buttock lipoma) Procedure Performed Excision left buttock lipoma. Surgeon Tomi Price MD Anesthesia General (General LMA) Indications Patient is a 44-year-old male who has cerebral palsy. He has a subcutaneous mass on his left buttock region which is painful when he sits on it. He presents now for excision. Findings The patient had a left buttock lipomatous mass measuring [id number]. It was completely excised out sent to pathology for examination. Description of Procedure After informed consent was obtained from the patient and his parents he was then taken to the operating room was placed in the supine position initially and placed under general LMA anesthesia. Is then turned onto the right lateral decubitus position and then all the pressure points were well padded. He was secured on the operating table. The area of the inferior left buttock was then prepped and draped usual sterile fashion. A time-out was then performed correctly identifying the patient as well as procedure to be performed. He was given perioperative IV antibiotics. Site marking was verified. 1% lidocaine mixed with 0.5% Marcaine with epinephrine was then injected around the mass for local anesthetic effect. Then made a oblique incision over the mass with a scalpel dissected down through the dermis skin with scalp. I then with a combination of electrocautery spreading around the lipomatous mass with Metzenbaum scissors I proceeded to excise out the mass from the surrounding subcutaneous tissues. The mass measured approximately [id number]. He was sent to pathology for examination. I then irrigated out the incision sterile saline solution. Hemostasis was achieved electrocautery. The wound was then closed utilizing interrupted 3-0 Vicryl sutures in subcutaneous tissues. The skin edges were then approximated utilizing a running subcuticular 4-0 Monocryl suture. The incision was then cleaned the skin glue was applied. The patient tolerated the procedure well no complications. All sponges, needles, and instrument counts were correct at the end procedure. EBL was _5__cc. The patient was awakened and taken to recovery in stable and satisfactory condition. Implants None Estimated Blood Loss 5 Drains No Packing No Pathology Yes (Lipoma sent to pathology) Complications No immediate complications Condition Stable Disposition PACU [facility] Billing Surgery - Charge Forward: Surgery Billing
[2025-03-11 15:50] VITALS: BP 124/82; PULSE 90; RESP 16; TEMP 36.8; O2SAT 98
[2025-03-11 16:05] VITALS: BP 134/79; PULSE 87; RESP 18; O2SAT 98
[2025-03-11 16:20] VITALS: BP 125/85; PULSE 87; RESP 18; O2SAT 98
[2025-03-11 16:31] VITALS: BP 120/99; PULSE 99; RESP 18
[2025-03-11 17:01] VITALS: BP 137/76; PULSE 89; RESP 18
--- NOTE | 2025-03-11 17:20 | SUR.PHASEII ---
D/C packet for patient found in room after patient and family left. Father, Constantine, called and notified and stated that they understood what was in the packet and the information covered in d/c instructions and did not feel it was necessary to return to hospital for paperwork. RN read important info and office number to both parents via telephone so they could write down important info and ensure understanding. They verbalized understanding with no further questions at this time.
== END 2025-03-11 17:11 | disposition home or self-care (01) ==
PROVIDERS: PCP Family Medicine; Visit Provider Surgery
PROC: (CPT 27043; principal; 2025-03-11 14:00)
DX: D17.1 Benign lipomatous neoplasm of skin and subcutaneous tissue of trunk (principal); K21.9 Gastro-esophageal reflux disease without esophagitis; G89.29 Other chronic pain; N50.819 Testicular pain, unspecified; D75.1 Secondary polycythemia; D50.9 Iron deficiency anemia, unspecified; K58.1 Irritable bowel syndrome with constipation; Q21.3 Tetralogy of Fallot; M41.9 Scoliosis, unspecified; I51.9 Heart disease, unspecified; Z79.82 Long term (current) use of aspirin; Z99.3 Dependence on wheelchair; Z98.890 Other specified postprocedural states; Z98.1 Arthrodesis status; Z95.4 Presence of other heart-valve replacement
CPT/HCPCS: 27043; 88304; 93005; A9270; J0690; J2003; J2004; J2405; J2704; J3010; J7120

== ENCOUNTER 2025-09-14 16:04 | Outpatient (NON) | payer BC, MEDICARE, OTHER, MEDICAID, SELFPAY ==
[2025-09-14 16:25] LABS: Add Urine Microscopic? YES; Appearance Urine Clear (Clear); Glucose Urine UA Negative (Negative); Leukocyte Esterase Ur Negative LEU/UL (Negative); Nitrate Urine Negative (Negative); Non Pathogenic Casts 0-2; Specific Grav Ur 1.023 (1.001-1.035)
== END 2025-09-14 16:05 | disposition home or self-care (01) ==
LOC: ANHLAB 16:07
PROVIDERS: PCP Family Medicine; Visit Provider Family Medicine
DX: R30.0 Dysuria (principal)
CPT/HCPCS: 81001; 87086